=== PATIENT | female | born 1960 | race Caucasian/White ===

== ENCOUNTER 2025-01-01 18:48 | Inpatient (IN) ==
[2025-01-01] MEDS: ADENOSINE 3 MG/ML VIAL IV ONE ×2 (19:16→19:18)
[2025-01-01] MEDS: ONDANSETRON 4 MG/2 ML VIAL IV ONE (19:19)
[2025-01-01] MEDS: 0.9 % SODIUM CHLORIDE 1,000 ML IV ONE (19:19)
[2025-01-01 19:23] LABS: Basophils # (Auto) 0.02 K/mcL (0.00-0.30); Basophils % (Auto) 0.1 % (0.0-2.0); Eosinophils # (Auto) 0.29 K/mcL (0.00-0.70); Eosinophils % (Auto) 1.6 % (0.0-7.0); Hematocrit 51.1 % (34.1-44.9); Hemoglobin 16.4 g/dL (11.2-15.7); Lymphocytes # (Auto) 0.74 K/mcL (1.50-4.80); Lymphocytes % (Auto) 4.1 % (15.5-49.0); Mean Cell Volume 93.2 fL (80.0-100.0); Mean Corpuscular HGB Conc 32.1 g/dL (31.0-36.0); Neutrophils % (Auto) 88.1 % (38.0-78.0); Platelet Count 277 K/mcL (140-440); RBC 5.48 M/mcL (3.59-5.38); Red Cell Distribution Width 11.2 % (11.5-14.5); WBC 18.2 K/mcL (4.5-11.0)
[2025-01-01] MEDS: DILTIAZEM 25 MG/5 ML VIAL IV ONE (19:33)
[2025-01-01 19:38] LABS: Prothrombin Time 13.4 sec (11.9-14.5)
[2025-01-01 19:45] LABS: ALT/SGPT 18 U/L (<40); AST/SGOT 22 U/L (<32); Albumin 4.5 gm/dL (3.2-5.2); Albumin/Globulin Ratio 1.7 (1.0-2.3); Alkaline Phosphatase 52 U/L (39-117); Bilirubin,Total 0.6 mg/dL (0.1-1.0); Blood Urea Nitrogen 12 mg/dL (8-23); Calcium 9.9 mg/dL (8.6-10.4); Carbon Dioxide 19 mmol/L (22-30); Chloride 103 mmol/L (96-108); Globulin 2.7 gm/dL (2.2-3.7); Glomerular Filtration Rate 78; Glucose 90 mg/dL (70-105); Potassium 3.4 mmol/L (3.3-5.1); Sodium 141 mmol/L (133-145)
[2025-01-01] MEDS: DILTIAZEM 125 MG in DEXTROSE 5% IN WATER 100 ML IV SCH (20:26)
[2025-01-01 20:32] LABS: Appearance,Urine Clear (Clear); Bilirubin,Urine Negative (Negative); Color,Urine Yellow; Glucose,Urine (UA) Negative (Negative); Ketones,Urine Negative (Negative); Leukocyte Esterase,Urine Negative /uL (Negative); Nitrate,Urine Negative (Negative); Protein,Urine Negative (Negative); Urine Blood Negative ery/mcL (Negative); Urine RBC 0 /hpf (0-3); Urine Squamous Epithelial Cell 3 /hpf (0-4); Urine WBC 0 /hpf (0-4); Urobilinogen,Urine 0.2 mg/dL
[2025-01-01 20:33] LABS: Thyroid Stimulating Hormone < 0.005 uIU/mL (0.27-5.01)
[2025-01-01] MEDS: HYDROmorphone 2 MG TABLET PO ONE (21:27)
[2025-01-01] MEDS: HYDROCORTISONE 10 MG TABLET PO ONE (21:27)
[2025-01-01 21:58] LABS: Free T4 (Free Thyroxine) 1.81 ng/dL (0.93-1.70)
[2025-01-01] MEDS ORDERED: SENNOSIDES 1 TABLET PO PRN (22:34)
[2025-01-01] MEDS ORDERED: ONDANSETRON 4 MG/2 ML VIAL IV PRN (22:34)
[2025-01-01] MEDS: LORazepam 2 MG/ML VIAL IV ONE (23:16)
[2025-01-01] MEDS: LACTATED RINGERS 1,000 ML IV SCH (23:16)
[2025-01-01] MEDS: METOPROLOL TARTRATE 25 MG TABLET PO SCH (23:17)
[2025-01-01] MEDS: 0.9 % SODIUM CHLORIDE 10 ML SYRINGE IV SCH (23:17)
[2025-01-01] MEDS: METOPROLOL TARTRATE 25 MG TABLET ONE (23:18)
[2025-01-02] MEDS: APIXABAN 5 MG TABLET PO SCH (00:12)
[2025-01-02] MEDS: POTASSIUM CHLORIDE 20 MEQ in DEXTROSE 5% IN WATER 250 ML IV ONE (00:12)
[2025-01-02] MEDS: APIXABAN 5 MG TABLET PO ONE (00:13)
[2025-01-02] MEDS: POTASSIUM CHLORIDE 20 MEQ/10 ML VIAL IV ONE (00:13)
[2025-01-02] MEDS: HYDROmorphone 2 MG TABLET PO PRN (00:30)
[2025-01-02] MEDS: HYDROmorphone 2 MG TABLET ONE ×2 (01:15→05:00)
[2025-01-02] MEDS: ACETAMINOPHEN 325 MG TABLET PO PRN (05:28)
[2025-01-02 05:57] LABS: Basophils # (Auto) 0.01 K/mcL (0.00-0.30); Basophils % (Auto) 0.1 % (0.0-2.0); Eosinophils # (Auto) 0.36 K/mcL (0.00-0.70); Hemoglobin 13.7 g/dL (11.2-15.7); Lymphocytes # (Auto) 1.07 K/mcL (1.50-4.80); Mean Cell Volume 93.7 fL (80.0-100.0); Mean Corpuscular HGB Conc 31.9 g/dL (31.0-36.0); Mean Platelet Volume 10.7 fL (8.8-12.5); Monocytes # (Auto) 0.68 K/mcL (0.10-0.90); Monocytes % (Auto) 7.6 % (1.0-12.0); Neutrophils % (Auto) 76.3 % (38.0-78.0); Platelet Count 225 K/mcL (140-440); RBC 4.59 M/mcL (3.59-5.38); Red Cell Distribution Width 11.5 % (11.5-14.5); WBC 8.9 K/mcL (4.5-11.0)
[2025-01-02] MEDS: ACETAMINOPHEN 325 MG TABLET PO ONE (06:06)
[2025-01-02 06:10] LABS: ALT/SGPT 14 U/L (<40); AST/SGOT 15 U/L (<32); Albumin 3.7 gm/dL (3.2-5.2); Albumin/Globulin Ratio 1.9 (1.0-2.3); Alkaline Phosphatase 40 U/L (39-117); Bilirubin,Direct 0.3 mg/dL (<0.3); Bilirubin,Total 0.6 mg/dL (0.1-1.0); Blood Urea Nitrogen 8 mg/dL (8-23); Calcium 8.7 mg/dL (8.6-10.4); Carbon Dioxide 21 mmol/L (22-30); Chloride 108 mmol/L (96-108); Glomerular Filtration Rate 96; Glucose 89 mg/dL (70-105); Lactate Dehydrogenase 155 U/L (135-225); Phosphorous 4.4 mg/dL (2.5-4.5); Sodium 142 mmol/L (133-145); Triglycerides 72 mg/dL (<150); Uric Acid 4.8 mg/dL (2.5-8.0)
[2025-01-02] MEDS: HYDROCORTISONE 10 MG TABLET PO SCH (10:31)
[2025-01-02] MEDS ORDERED: DILTIAZEM 125 MG in 0.9 % SODIUM CHLORIDE 100 ML IV PRN (11:51)
[2025-01-02] MEDS: HYDROXYCHLOROQUINE 200 MG TABLET PO SCH (21:49)
[2025-01-02] MEDS: CYCLOBENZAPRINE 10 MG TABLET PO ONE (21:50)
[2025-01-02] MEDS: clonazePAM 0.5 MG TABLET PO PRN (21:50)
[2025-01-03 05:49] LABS: Basophils # (Auto) 0.01 K/mcL (0.00-0.30); Basophils % (Auto) 0.2 % (0.0-2.0); Eosinophils # (Auto) 0.22 K/mcL (0.00-0.70); Eosinophils % (Auto) 3.6 % (0.0-7.0); Hematocrit 38.1 % (34.1-44.9); Hemoglobin 12.4 g/dL (11.2-15.7); Lymphocytes # (Auto) 1.68 K/mcL (1.50-4.80); Lymphocytes % (Auto) 27.5 % (15.5-49.0); Mean Cell Volume 92.7 fL (80.0-100.0); Mean Corpuscular HGB Conc 32.5 g/dL (31.0-36.0); Monocytes # (Auto) 0.53 K/mcL (0.10-0.90); Monocytes % (Auto) 8.7 % (1.0-12.0); Neutrophils % (Auto) 59.8 % (38.0-78.0); Platelet Count 209 K/mcL (140-440); RBC 4.11 M/mcL (3.59-5.38); Red Cell Distribution Width 11.3 % (11.5-14.5); WBC 6.1 K/mcL (4.5-11.0)
[2025-01-03 06:16] LABS: ALT/SGPT 13 U/L (<40); AST/SGOT 12 U/L (<32); Albumin 3.4 gm/dL (3.2-5.2); Albumin/Globulin Ratio 1.8 (1.0-2.3); Alkaline Phosphatase 34 U/L (39-117); Bilirubin,Direct 0.2 mg/dL (<0.3); Bilirubin,Total 0.5 mg/dL (0.1-1.0); Blood Urea Nitrogen 5 mg/dL (8-23); Calcium 8.7 mg/dL (8.6-10.4); Carbon Dioxide 22 mmol/L (22-30); Chloride 110 mmol/L (96-108); Globulin 1.9 gm/dL (2.2-3.7); Glomerular Filtration Rate 102; Glucose 84 mg/dL (70-105); Lactate Dehydrogenase 140 U/L (135-225); Phosphorous 4.4 mg/dL (2.5-4.5); Potassium 3.5 mmol/L (3.3-5.1); Sodium 145 mmol/L (133-145); Triglycerides 68 mg/dL (<150)
[2025-01-03 08:11] VITALS: TEMP 97.6
[2025-01-03] MEDS: MAGNESIUM OXIDE 400 MG TABLET PO SCH (08:39)
[2025-01-03] MEDS: VITAMIN D3 125 MCG TABLET PO SCH (08:40)
[2025-01-03 09:30] VITALS: O2SAT 99
== END 2025-01-03 09:10 | disposition home or self-care (01) | DRG 309 ==
LOC: ED 18:48 → ICU 22:35
PROVIDERS: ADMIT Student in an Organized Health Care Education/Training Program; ATTEND Student in an Organized Health Care Education/Training Program